=== PATIENT | female | born 1970 | race Caucasian/White ===

== ENCOUNTER 2024-01-27 15:20 | Emergency (ER) | payer OTHER, SELFPAY ==
[2024-01-27 15:23] VITALS: BP 154/115
[2024-01-27 16:25] VITALS: BMI 21.2
[2024-01-27 16:27] VITALS: BP 157/100
[2024-01-27] MEDS: MAALOX 40 PO (16:43)
[2024-01-27 16:44] LABS: % Basophils 0.3 % (0-2); % Eosinophils 0.5 % (0-6); % Immature Granulocytes 0.2 % (0-0.5); % Lymphocytes 17.5 % (20.5-51.1); % Monocytes 8.2 % (1.7-9.3); % Neutrophils 73.3 % (42.2-75.2); Absolute Monocytes 0.5 10^3/uL (0.1-0.6); Absolute Neutrophils 4.3 10^3/uL (1.4-6.5); Hematocrit 43.7 % (37.0-47.0); Hemoglobin 15.4 g/dL (12.0-16.0); Mean Corp Hgb Conc. 35.2 g/dL (33.0-37.0); Mean Corpuscular Hgb 30.3 pg (27.0-31.0); Mean Corpuscular Volume 85.9 fL (81.0-99.0); Mean Platelet Volume 10.2 fL (7.4-10.4); Nucleated Red Blood Cells % 0 %; Platelet Count 162 10^3/uL (130-400); Red Blood Cell Count 5.09 10^6/uL (4.20-5.40); Red Cell Dist. Width 12.4 % (11.5-14.5); White Blood Cell Count 5.9 10^3/uL (4.8-10.8)
[2024-01-27 16:59] LABS: ALT (SGPT) 207 U/L (0-35); AST (SGOT) 70 U/L (14-36); Albumin 4.6 g/dl (3.5-5.0); Alkaline Phosphatase 215 U/L (38-126); Blood Urea Nitrogen 13 mg/dl (7-17); Carbon Dioxide 26 mmol/L (22-30); Chloride 105 mmol/L (98-107); Estimated Creatinine Clearance 93 ml/min; Glucose 112 mg/dl (70-99); Lipase 82 U/L (23-300); Potassium 3.8 mmol/L (3.5-5.1); Sodium 138 mmol/L (135-145); Total Bilirubin 0.9 mg/dl (0.2-1.3); eGFR > 60.00
[2024-01-27] MEDS: PROTONIX IV 40 MG IV (18:23)
[2024-01-27 18:24] VITALS: BP 133/84
--- NOTE | 2024-01-27 19:46 | ED.GENMED ---
History of Present Illness
General
Chief Complaint: Abdominal Pain
Source: patient
Exam Limitations: none
Time Seen by Provider: 01/27/24 16:30
Nursing documentation reviewed up to this point in time: agreed with
Travel History
Have you had any contact with someone who has COVID-19?: No
Do you have any symptoms of coronavirus? Fever > 100 degrees, chills, cough, shortness of breath, sore throat, loss of taste or smell, muscle aches, or headache?: No
History of Present Illness
History of Present Illness:
Patient to ED with complaint of epigastric pain. States she had been alternating tylenol and ibu for the past week for cold symptoms. 2 days ago her abd. symptoms started. No vomiting or diarrea. Brought self to ED for eval.
Past History
Past History
ED Past Medical History: None
ED Past Surgical History: Cholecystectomy
Review of Systems
Review of Systems
Allergies reviewed?: Yes
All Other Systems: ROS reviewed and negative except as documented in HPI and ROS
Constitutional: Reports no symptoms
EENT: Reports no symptoms
Respiratory: Reports no symptoms
Cardiac: Reports no symptoms
ABD/GI: Reports abdominal pain (epigastric)
: Reports no symptoms
Musculoskeletal: Reports no symptoms
Skin: Reports no symptoms
Neurological: Reports no symptoms
Psychiatric: Reports no symptoms
Phy Exam
General Physical Exam
General Presentation: well appearing and no apparent distress
General age: appears stated age
General Skin: warm and dry
General Habitus: normal
General Mental: alert
General Hydration: appears well hydrated
Gastrointestinal Exam
Gastrointestinal Exam: normal bowel sounds, soft, no organomegaly, no pulsatile mass, non distended and no cva tenderness
Palpation: left upper quadrant: Minimal tenderness, left lower quadrant: No tenderness, right upper quadrant: Mild tenderness and right lower quadrant: No tenderness
Musculoskeletal Exam
Musculoskeletal Exam: full ROM and neuro vasc intact
Skin Exam
Skin Exam: normal color, warm/dry and no rash
Psychiatric Exam
Psychiatric Exam: normal mood/affect
Course
Orders/Labs/Results
Orders:
Orders
01/27/24 16:35
Complete Blood Count/With Diff Urgent
Comprehensive Metabolic Panel Urgent
Lipase Urgent
01/27/24 16:36
Mag Hydrox/Al Hydrox/Simeth [Maalox] 30 ml Phenobarb/Hyoscy/Atropine/Scop [] 10 ml PO NOW
US Abdomen Complete/Upper Urgent
Comment:
Reason For Exam: PAIN
01/27/24 16:41
Mag Hydrox/Al Hydrox/Simeth [Maalox] 30 ml .ROUTE .STK-MED ONE
Phenobarb/Hyoscy/Atropine/Scop [] 10 ml .ROUTE .STK-MED ONE
01/27/24 18:14
Pantoprazole [Protonix IV] 40 mg .ROUTE .STK-MED ONE
01/27/24 18:15
Pantoprazole [Protonix IV] 40 mg IV NOW STA
Abnormal Lab Results
01/27/24
16:35
Absolute Lymphs (auto) 1.0 L 10^3/uL
(1.2-3.4)
Lymphocytes % 17.5 L %
(20.5-51.1)
Creatinine 0.5 L mg/dL
(0.6-1.0)
Glucose 112 H mg/dl
(70-99)
AST 70 H U/L
(14-36)
ALT 207 H U/L
(0-35)
Alkaline Phosphatase 215 H U/L
(38-126)
01/27/24 16:35
01/27/24 16:35
Vital Signs
Initial and Last Documented VS:
Initial Vital Signs
Temp Pulse Resp BP Pulse Ox
98.9 F 78 22 154/115 99
01/27/24 15:23 01/27/24 15:23 01/27/24 15:23 01/27/24 15:23 01/27/24 15:23
Last Documented Vital Signs
Temp Pulse Resp BP Pulse Ox
98.3 F 68 18 133/84 98
01/27/24 16:27 01/27/24 18:24 01/27/24 18:24 01/27/24 18:24 01/27/24 18:24
*Critical Care Note
Total Time (30-74mins, 75-104mins- exclusive of procedures): Not Applicable
Update Note
Update Note:
Labs reviewed. Mild LFT elevation noted. SHe admits to high dose tylenol use over the past week for cold symptoms. She will refrain from any further tylenol use, recheck LFT's in 2 weeks. All other lab results acceptavble. US without concerning
findings. SHe is discharged home. WIll continue Protonix for gastritis symptoms daily x 14 days. Given instructions on s/s to return to ED andshe is agreeable to plan.
ED Attending Note
-
Portions of this chart may have been created with voice recognition software.� Occasional wrong word or��sound alike� substitutions may have occurred due to the inherent limitations of voice recognition software.
Discharge Plan
Departure
Patient Disposition: Home (Routine Discharge)
Date of Disposition: 01/27/24
Time of Disposition: 18:40
Patient with high blood pressure during this ER visit?: No
Condition: Good
Covid-19: Not Applicable
Discharge Problem:
Abdominal pain
Instructions: Gastritis (DC)
Prescriptions:
New
pantoprazole [Protonix] 40 mg tablet,delayed release (DR/EC)
40 mg PO DAILY Qty: 14 0RF
Referrals:
Edwina Cullen CRNP [Family Provider] - Follow up in 2-3 days
Activity Restrictions/Additional Instructions:
Return to the emergency department for any changes in/worsening of your symptoms.
Interventions
Interventions:
*Risk Screen - Suicide Last Done: 01/27/24 15:29
*General Assessment Last Done: 01/27/24 15:29
*Neglect/Abuse Screening Last Done: 01/27/24 15:29
*Nursing Disposition Last Done: 01/27/24 18:56
GX-Ebkuuv-Jdnogwxeyw Assessment Last Done: 01/27/24 16:30
Discharge Date and Time
Discharge Date/Time: 01/27/24 18:57
Print Language: [id number]
== END 2024-01-27 18:57 | disposition home or self-care (01) ==
LOC: EMR 15:20
PROVIDERS: EMERGENCY PHYSICIAN Emergency Medicine; FAMILY PHYSICIAN Nurse Practitioner Family
DX: R10.13 Epigastric pain (principal)
CPT/HCPCS: 99284; 96374; 76700; 80053; 83690; 85025